=== PATIENT | male | born 1970 | race Caucasian/White ===

== ENCOUNTER 2022-04-07 12:26 | Emergency (ER) | payer MEDICAID ==
--- NOTE | 2022-04-07 13:20 | NUR ---
NO ANSWER IN LOBBY
--- NOTE | 2022-04-07 13:29 | NUR ---
NO ANSWER IN LOBBY
== END 2022-04-07 13:29 | disposition left against medical advice (07) ==
LOC: SED 12:26
DX: R22.42 Localized swelling, mass and lump, left lower limb (principal); Z53.21 Procedure and treatment not carried out due to patient leaving prior to being seen by health care provider

== ENCOUNTER 2022-04-08 06:48 | Inpatient (IN) | payer MEDICAID ==
[~2022-04-08] VITALS: Ht 177.8 cm; Wt 92.5 kg
[2022-04-08 07:29] VITALS: BP_SYST 159
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
--- NOTE | 2022-04-08 07:57 | NUR ---
Dr Del Toro evaluating patient at bedside
[2022-04-08 08:22] LABS: BILIRUBIN,URINE NEGATIVE (NEGATIVE); BLOOD, URINE NEGATIVE (NEGATIVE); CLARITY/URINE CLEAR (CLEAR); COLOR,URINE YELLOW (YELLOW); GLUCOSE,URINE NEGATIVE (NEGATIVE); KETONES,URINE NEGATIVE (NEGATIVE); LEUKOCYTE ESTERASE ,URINE NEGATIVE (NEGATIVE); NITRITE, URINE NEGATIVE (NEGATIVE); PH,URINE 5.5 (5.0-8.0); PROTEIN URINE NEGATIVE (NEGATIVE)
[2022-04-08 08:36] LABS: BASOPHILS # (AUTO) 0.1 K/uL (0.0-0.2); BASOPHILS % (AUTO) 1.5 % (0.0-2.0); EOSINOPHILS # (AUTO) 0.2 K/uL (0.0-0.4); EOSINOPHILS % (AUTO) 2.5 % (0.0-4.0); HEMATOCRIT 40.8 % (36-54); HEMOGLOBIN 13.7 g/dL (14.0-18.0); LYMPHOCYTES # (AUTO) 1.4 K/uL (1.0-5.5); LYMPHOCYTES % (AUTO) 21.7 % (20.5-51.5); MEAN CORPUSCULAR HEMOGLOBIN 32 pg (27-31); MEAN CORPUSCULAR HGB CONC 34 % (32-36); MEAN CORPUSCULAR VOLUME 95 fL (79.0-98.0); MONOCYTES # (AUTO) 0.8 K/uL (0.0-1.0); MONOCYTES % (AUTO) 11.5 % (1.7-9.3); NEUTROPHILS # (AUTO) 4.1 K/uL (1.8-7.7); NEUTROPHILS % (AUTO) 62.8 % (40.0-70.0); PLATELET COUNT (AUTO) 285 K/uL (130-430); RED BLOOD CELL COUNT(AUTO) 4.28 MIL/uL (4.2-6.2); RED CELL DISTRIBUTION WIDTH 12.7 % (9.0-15.0); WHITE BLOOD COUNT (AUTO) 6.6 K/uL (4.8-10.8)
[2022-04-08 08:41] LABS: BARBITURATE, URINE NEGATIVE (NEG <=200); BENZODIAZEPINE, URINE NEGATIVE (NEG <=150); CANNABINOID, URINE NEGATIVE (NEG <=50); COCAINE, URINE NEGATIVE (NEG <=150); METHAMPHETAMINES SCREEN,URINE POSITIVE (NEG <=500); OPIATE, URINE POSITIVE (NEG <=100); PHENCYCLIDINE SCREEN,URINE NEGATIVE (NEG <=25); UR TRICYCLIC ANTIDEPRESSANTS NEGATIVE (NEG <=300); URINE AMPHETAMINE POSITIVE (NEG <=500); URINE METHADONE NEGATIVE (NEG <=200); URINE OXYCODONE SCREEN NEGATIVE (NEG <=100); URINE PROPOXYPHENE SCREEN NEGATIVE (NEG <=300)
[2022-04-08 08:48] LABS: CALCIUM 8.9 mg/dL (8.4-11.0); CREATININE 1.04 mg/dL (0.55-1.30)
[2022-04-08 08:55] LABS: ALBUMIN 3.7 g/dL (3.4-4.8); TOTAL BILIRUBIN 0.5 mg/dL (0.0-1.0)
--- NOTE | 2022-04-08 09:25 | NUR ---
Called patient to hallway 1, no answer,pt chidi
--- NOTE | 2022-04-08 10:19 | NUR ---
Patient to ER bed H3 to gown for evaluation. Side rails up.
[2022-04-08] MEDS ORDERED: cefTRIAXone 2 GM VIAL ONE (10:46)
[2022-04-08] MEDS ORDERED: iohexoL 350 mgI/mL, 100 ML INFUS..BTL IV ONE (12:03)
--- NOTE | 2022-04-08 12:04 | NUR ---
Admit bed requested Patient will be admitted to care of . Admitted to TELE unit. Diagnosis CELLULITIS, ELEVATED TROPONIN Inpatient (Yes or No) YES Observation (Yes or No) NO Orientation concerns or request close to nursing station (Yes or No) NO Covid Status PENDING On vent or bipap NO Isolation requirements NO Needs a sitter NO From Home (Yes or if No enter name of facility) HOME Requires Dialysis (Yes or No) NO Med Rec Completed (Yes of No) YES
--- NOTE | 2022-04-08 12:20 | NUR ---
PT STATES HE TAKES NO MEDS ON REGULAR BASIS, NO MED REC NEEDED.
[2022-04-08] MEDS ORDERED: ACETAMINOPHEN 325 MG TABLET PO PRN ×2 (13:30→13:45)
[2022-04-08] MEDS ORDERED: HYDROcodone/ACETAMIN 10-325 MG TAB PO PRN (13:30)
[2022-04-08] MEDS ORDERED: ONDANSETRON HCL 4 MG/2 ML VIAL IVP PRN (13:30)
[2022-04-08] MEDS ORDERED: NALOXONE HCL 0.4 MG/ML AMP (NARCAN) IVP PRN ×2 (13:30)
[2022-04-08] MEDS ORDERED: HYDROcodone/ACETAMIN 5-325 MG TAB (NORCO/ VICODIN) PO PRN (13:30)
[2022-04-08] MEDS: NORMAL SALINE 5 ML DISP.SYRIN IVF SCH ×4 (14:00→22:00)
--- NOTE | 2022-04-08 19:40 | NUR ---
REPORT GIVEN TO NEISHA RN. PT STABLE. VSS
--- NOTE | 2022-04-08 19:59 | NUR ---
Report received from SEYMOUR Cruz for continuity of care. Patient in stable condition. No distress noted.
--- NOTE | 2022-04-08 20:40 | NUR ---
ADMISSION NOTE Received patient from ER via tee, received report from ER/ RN. Patient admitted with diagnosis of LEFT LEG CELLULITIS/ELEVATED TROPONIN. Patient oriented to hospital routine, call light, toileting and safety-patient verbalized understanding.
--- NOTE | 2022-04-08 20:51 | NUR ---
Patient will be admitted to care of [facility]. Admitted to TELE unit. Will go to room 101B. Belongings list completed. Complete and up to date summary report printed. SBAR report to be given at bedside with opportunity for questions.
[2022-04-08 22:16] VITALS: BP_SYST 135
--- NOTE | 2022-04-08 22:50 | NUR ---
CONSULTATION PAGED/CALLED Reason for Consultation: ELEVATED TROPONIN Person Who was Notified: DR DAKOTA PELAEZ Consulting Physician: DR. DAKOTA PELAEZ System Integration Engineer Specialty: NET DEVELOPER SOFTWARE ENGINEER C Ordering Physician: DR. DAKOTA SANDOVAL
[2022-04-09] VITALS: BP_SYST 140
--- NOTE | 2022-04-09 01:00 | NUR ---
PATIENT RESTING: Patient resting quietly. No acute distress noted. telemetry NSR
[2022-04-09] MEDS: NORMAL SALINE 5 ML DISP.SYRIN IVF SCH ×6 (06:00→22:00)
--- NOTE | 2022-04-09 06:25 | NUR ---
Patient sleep well denies any chest pain , telemetry NSR.
[2022-04-09 06:51] LABS: BASOPHILS % (AUTO) 0.9 % (0.0-2.0); EOSINOPHILS # (AUTO) 0.2 K/uL (0.0-0.4); EOSINOPHILS % (AUTO) 4.3 % (0.0-4.0); HEMATOCRIT 40.3 % (36-54); HEMOGLOBIN 13.5 g/dL (14.0-18.0); LYMPHOCYTES # (AUTO) 1.3 K/uL (1.0-5.5); LYMPHOCYTES % (AUTO) 26.4 % (20.5-51.5); MEAN CORPUSCULAR HEMOGLOBIN 32 pg (27-31); MEAN CORPUSCULAR HGB CONC 34 % (32-36); MEAN CORPUSCULAR VOLUME 95 fL (79.0-98.0); MONOCYTES # (AUTO) 0.5 K/uL (0.0-1.0); MONOCYTES % (AUTO) 9.8 % (1.7-9.3); NEUTROPHILS % (AUTO) 58.6 % (40.0-70.0); PLATELET COUNT (AUTO) 249 K/uL (130-430); RED BLOOD CELL COUNT(AUTO) 4.23 MIL/uL (4.2-6.2); RED CELL DISTRIBUTION WIDTH 12.5 % (9.0-15.0)
--- NOTE | 2022-04-09 07:23 | NUR ---
OPENING NOTES: RECEIVED BEDSIDE SBAR FROM PM SHIFT NURSE, PATIENT IS STABLE NO DISTRESS, RESTING IN BED WITH EYES CLOSED, CALL LIGHT IN REACH, BED LOCKED AND IN LOW POSITION ALL NEEDS BEING KNOWN, WILL MONITOR PATIENT PER ORDERS.
[2022-04-09 07:49] LABS: CALCIUM 8.3 mg/dL (8.4-11.0); CREATININE 0.86 mg/dL (0.55-1.30); PHOSPHORUS 3.3 mg/dL (2.7-4.5)
[2022-04-09 08:01] VITALS: BP_SYST 135
[2022-04-09] MEDS: cefTRIAXone 1 GM IVPB PREMIX 50 ML IV SCH (09:42)
[2022-04-09 12:30] VITALS: BP_SYST 136
[2022-04-09 16:02] VITALS: BP_SYST 139
--- NOTE | 2022-04-09 16:27 | NUR ---
SPOKE WITH DR Tj DUNCAN, OK TO DOWN GRADE TO MED SURG.
--- NOTE | 2022-04-09 16:36 | NUR ---
TELE BOX REMOVED, PATIENT IS STABLE NO DISTRESS, SITTING UP IN CHAIR. AMB TO RESTROOM
--- NOTE | 2022-04-09 18:10 | NUR ---
CLOSING NOTES: PATIENT REMAINED STABLE NO DISTRESS, ALL NEED WHERE KNOWN, PATIENT RESTING WELL IN BED CALL LIGHT IN REACH, BED AT LOW AND LOCKED POSITION WILL GIVE PM SHIFT NURSE BEDSIDE SBAR.
[2022-04-09 19:31] VITALS: BP_SYST 131
[2022-04-10 00:01] VITALS: BP_SYST 134
--- NOTE | 2022-04-10 05:02 | NUR ---
CONSULTATION PAGED/CALLED Reason for Consultation: CELLULITIS, LEG WOUND Person Who was Notified: LANA Consulting Physician: DR. GISELE CUMMINGS FOR DR.H FLOWER Supplies Packer Specialty: GEN SURG Ordering Physician:
--- NOTE | 2022-04-10 05:58 | NUR ---
No significant changes from assessment, left lower still with swelling much improve compare on admission ,,redness, warm to touch , encouraged to elevate leg ,denies any pain, needs attended.
[2022-04-10] MEDS: NORMAL SALINE 5 ML DISP.SYRIN IVF SCH ×6 (06:00→20:43)
[2022-04-10 06:58] LABS: BASOPHILS % (AUTO) 0.7 % (0.0-2.0); EOSINOPHILS # (AUTO) 0.3 K/uL (0.0-0.4); EOSINOPHILS % (AUTO) 5.1 % (0.0-4.0); HEMATOCRIT 40.9 % (36-54); HEMOGLOBIN 13.7 g/dL (14.0-18.0); LYMPHOCYTES # (AUTO) 1.5 K/uL (1.0-5.5); LYMPHOCYTES % (AUTO) 28.8 % (20.5-51.5); MEAN CORPUSCULAR HEMOGLOBIN 32 pg (27-31); MEAN CORPUSCULAR HGB CONC 34 % (32-36); MEAN CORPUSCULAR VOLUME 95 fL (79.0-98.0); MONOCYTES # (AUTO) 0.5 K/uL (0.0-1.0); MONOCYTES % (AUTO) 10.8 % (1.7-9.3); NEUTROPHILS # (AUTO) 2.8 K/uL (1.8-7.7); NEUTROPHILS % (AUTO) 54.6 % (40.0-70.0); PLATELET COUNT (AUTO) 249 K/uL (130-430); RED BLOOD CELL COUNT(AUTO) 4.32 MIL/uL (4.2-6.2); RED CELL DISTRIBUTION WIDTH 12.1 % (9.0-15.0); WHITE BLOOD COUNT (AUTO) 5.1 K/uL (4.8-10.8)
--- NOTE | 2022-04-10 07:45 | NUR ---
RECEIVED PATIENT FROM PM NURSE, ALERT AND ORIENTED, ABLE TO VERBALIZE NEEDS, IV IN LFA PATENT, NO C/O PAIN OR DISCOMFORT, SWELLING OBSERVED IN LEFT LEG, WARM TO THE TOUCH, WILL ASSUME ALL CARE OF PATIENT
[2022-04-10] MEDS: cefTRIAXone 1 GM IVPB PREMIX 50 ML IV SCH ×2 (07:54→20:42)
[2022-04-10 07:59] LABS: ALANINE AMINOTRANSFERASE 28 U/L (12-78); ALBUMIN 3.3 g/dL (3.4-4.8); ANION GAP 7 (5-15); ASPARTATE AMINOTRANSFERASE 20 U/L (10-37); CALCIUM 8.5 mg/dL (8.4-11.0); CHLORIDE 101 mmol/L (98-107); CREATININE 1.09 mg/dL (0.55-1.30); GLUCOSE 100 mg/dL (70-99); TOTAL BILIRUBIN 0.3 mg/dL (0.0-1.0); UREA NITROGEN, BLOOD 23 mg/dL (8-21)
[2022-04-10 08:00] LABS: C-REACTIVE PROTEIN QUANT < 0.2 mg/dL (0-0.5); GFR AFRICAN AMERICAN 91 mL/min (>90)
[2022-04-10 08:30] VITALS: BP_SYST 134
--- NOTE | 2022-04-10 09:15 | NUR ---
PATIENT C/O 5/10 PAIN IN LEFT LEG, PRN TYLENOL ADMINISTERED PER EMAR
[2022-04-10 11:38] LABS: ERYTHROCYTE SEDIMENTATION RATE 5 MM/HR (0-15)
--- NOTE | 2022-04-10 11:54 | NUR ---
TELEPHONE CALL FROM LAB, PATIENT MRSA POSITIVE, CHARGE NURSE MADE AWARE
[2022-04-10 12:00] VITALS: BP_SYST 132
--- NOTE | 2022-04-10 12:45 | NUR ---
CONSULTATION PAGED REASON FOR CONSULTATION CELLULITIS LEG WOUND WAS CONSULT CALED?Y PERSON WHO WAS NOTIFIED:KARSTEN CONSULTING PHYSICIAN:MANUEL GONZALEZ BRAKE PRESS OPERATOR SPECIALTY:SURGEON BRAKE PRESS OPERATOR PHONE NUMBER:[phone] REQUESTING PHYSICIAN:JAIME SAGASTUME
--- NOTE | 2022-04-10 13:41 | NUR ---
Dietitian Recommendations * Continue cardiac diet * Consider wound supplements: MVI, 250 mg VIT C, Nathan BID * Consider 220mg ZnSO4 x 14 days for wound healing GS, MPH, RD Please refer to RD Assessment for further details Addendum: 04/10/22 at [address] Amended: Links added.
[2022-04-10 16:30] VITALS: BP_SYST 158
[2022-04-10 20:00] VITALS: BP_SYST 131
--- NOTE | 2022-04-10 21:56 | NUR ---
Patient in bed. No acute distress noted. No complaint of pain or discomfort. Will continue to monitor.
[2022-04-11 04:00] VITALS: BP_SYST 132
[2022-04-11] MEDS: NORMAL SALINE 5 ML DISP.SYRIN IVF SCH ×2 (05:18)
[2022-04-11 07:01] LABS: BASOPHILS % (AUTO) 0.7 % (0.0-2.0); EOSINOPHILS # (AUTO) 0.4 K/uL (0.0-0.4); EOSINOPHILS % (AUTO) 6.7 % (0.0-4.0); HEMATOCRIT 43.6 % (36-54); HEMOGLOBIN 14.6 g/dL (14.0-18.0); LYMPHOCYTES # (AUTO) 1.6 K/uL (1.0-5.5); LYMPHOCYTES % (AUTO) 30.4 % (20.5-51.5); MEAN CORPUSCULAR HEMOGLOBIN 32 pg (27-31); MEAN CORPUSCULAR HGB CONC 33 % (32-36); MEAN CORPUSCULAR VOLUME 95 fL (79.0-98.0); MONOCYTES # (AUTO) 0.6 K/uL (0.0-1.0); MONOCYTES % (AUTO) 11.9 % (1.7-9.3); NEUTROPHILS # (AUTO) 2.7 K/uL (1.8-7.7); NEUTROPHILS % (AUTO) 50.3 % (40.0-70.0); PLATELET COUNT (AUTO) 284 K/uL (130-430); RED CELL DISTRIBUTION WIDTH 12.5 % (9.0-15.0); WHITE BLOOD COUNT (AUTO) 5.4 K/uL (4.8-10.8)
[2022-04-11 07:43] LABS: ANION GAP 8 (5-15); CALCIUM 8.5 mg/dL (8.4-11.0); CHLORIDE 101 mmol/L (98-107); CREATININE 0.79 mg/dL (0.55-1.30); GLUCOSE 105 mg/dL (70-99); UREA NITROGEN, BLOOD 17 mg/dL (8-21)
[2022-04-11 07:55] LABS: GFR AFRICAN AMERICAN 131 mL/min (>90)
[2022-04-11 07:56] LABS: C-REACTIVE PROTEIN QUANT < 0.2 mg/dL (0-0.5)
[2022-04-11 08:00] VITALS: BP_SYST 130
[2022-04-11] MEDS ORDERED: HYDR-3917 PO (10:58)
[2022-04-11 11:27] VITALS: BP_SYST 156
[2022-04-11 12:32] LABS: ERYTHROCYTE SEDIMENTATION RATE 3 MM/HR (0-15)
--- NOTE | 2022-04-11 13:57 | NUR ---
patient left ama, educated on risks of leaving before completion of treatment, patient verbalized understanding, MD made aware, iv in left hand dc with iv intact,
== END 2022-04-11 13:50 | disposition left against medical advice (07) | DRG 720 ==
LOC: SED 06:48 → STU 11:53 → SMU 04-09 16:39
PROVIDERS: ADMIT Preventive Medicine Preventive Medicine/Occupational Environmental Medicine; ATTEND Preventive Medicine Preventive Medicine/Occupational Environmental Medicine
DX: A41.9 Sepsis, unspecified organism (principal); E88.09 Other disorders of plasma-protein metabolism, not elsewhere classified; L03.116 Cellulitis of left lower limb; E83.52 Hypercalcemia; F15.90 Other stimulant use, unspecified, uncomplicated; Z20.822 Contact with and (suspected) exposure to COVID-19; M25.462 Effusion, left knee; R73.9 Hyperglycemia, unspecified
CPT/HCPCS: 36415; 71045; 71275; 76376; 80048; 80053; 80307; 81003; 83605; 83735; 83880; 84100; 84484; 85025; 85651-TC; 86140; 87040; 87081; 93306; 93971; 99285; G0378; J0696; J7030; Q9967

== ENCOUNTER 2022-10-10 14:31 | Emergency (ER) | payer MEDICAID ==
[~2022-10-10] VITALS: Ht 177.8 cm; Wt 95.3 kg
[~2022-10-10 14:31] MED LIST: HYDR-3917 PO
[2022-10-10 14:46] VITALS: BP_SYST 109
--- NOTE | 2022-10-10 15:13 | NUR ---
Patient to ER CHAIR 2 for evaluation.
--- NOTE | 2022-10-10 15:14 | NUR ---
ER Dr. LERNER at bedside examining patient.
[2022-10-10] MEDS ORDERED: ceFAZolin SODIUM 2 GM VIAL IM ONE (15:15)
[2022-10-10] MEDS ORDERED: IBUPROFEN 800 MG TABLET PO ONE (15:15)
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
[2022-10-10] MEDS ORDERED: ceFAZolin SODIUM 1 GM VIAL IM ONE (15:30)
[2022-10-10] MEDS ORDERED: CEPH-548 PO (16:54)
[2022-10-10] MEDS ORDERED: DICL20GE TP (16:54)
[2022-10-10] MEDS ORDERED: IBUP-1971 PO (16:54)
[2022-10-10 16:58] VITALS: BP_SYST 116
--- NOTE | 2022-10-10 16:58 | NUR ---
Patient given written and verbal discharge instructions and verbalizes understanding. ER MD discussed with patient the results and treatment provided. Patient in stable condition. ID arm band removed. Rx of KEFLEX, DICLOFENAC, IBUPROFEN given. Patient educated on pain management and to follow up with PMD. Pain Scale . Opportunity for questions provided and answered. Medication side effect fact sheet provided.
== END 2022-10-10 16:58 | disposition home or self-care (01) ==
LOC: SED 14:31
DX: L03.116 Cellulitis of left lower limb (principal); R22.42 Localized swelling, mass and lump, left lower limb; Z79.899 Other long term (current) drug therapy
CPT/HCPCS: 99285; 93971; 96372; J0690

== ENCOUNTER 2023-01-20 21:52 | Emergency (ER) | payer MEDICAID ==
[~2023-01-20] VITALS: Ht 177.8 cm; Wt 79.4 kg
[~2023-01-20 21:52] MED LIST changes: +CEPH-548 PO; +DICL20GE TP; +IBUP-1971 PO
[2023-01-20 22:02] VITALS: BP_SYST 147; PULSE 76; TEMP 98; O2SAT 98
[2023-01-20 22:55] LABS: BASOPHILS % (AUTO) 0.5 % (0.0-2.0); EOSINOPHILS # (AUTO) 0.1 K/uL (0.0-0.4); EOSINOPHILS % (AUTO) 1.9 % (0.0-4.0); HEMATOCRIT 38.4 % (36-54); HEMOGLOBIN 12.5 g/dL (14.0-18.0); LYMPHOCYTES # (AUTO) 1.3 K/uL (1.0-5.5); LYMPHOCYTES % (AUTO) 16.9 % (20.5-51.5); MEAN CORPUSCULAR HEMOGLOBIN 31 pg (27-31); MEAN CORPUSCULAR HGB CONC 33 % (32-36); MEAN CORPUSCULAR VOLUME 95 fL (79.0-98.0); MONOCYTES # (AUTO) 0.9 K/uL (0.0-1.0); MONOCYTES % (AUTO) 12.6 % (1.7-9.3); NEUTROPHILS # (AUTO) 5.1 K/uL (1.8-7.7); NEUTROPHILS % (AUTO) 68.1 % (40.0-70.0); PLATELET COUNT (AUTO) 252 K/uL (130-430); RED BLOOD CELL COUNT(AUTO) 4.07 MIL/uL (4.2-6.2); RED CELL DISTRIBUTION WIDTH 13.6 % (9.0-15.0); WHITE BLOOD COUNT (AUTO) 7.5 K/uL (4.8-10.8)
[2023-01-20 23:12] LABS: CALCIUM 7.4 mg/dL (8.4-11.0); CREATININE 1.02 mg/dL (0.55-1.30); POTASSIUM 3.8 mmol/L (3.5-5.1)
[2023-01-20 23:16] LABS: ALBUMIN 3.1 g/dL (3.4-4.8); TOTAL BILIRUBIN 0.3 mg/dL (0.0-1.0); TOTAL PROTEIN, SERUM 7.1 g/dL (6.4-8.3)
[2023-01-21] MEDS ORDERED: VANCOMYCIN HCL 1000 MG/VIAL IV ONE (00:43)
[2023-01-21] MEDS ORDERED: PIPERACILLIN/TAZOBACTAM 3.375 GM/VIAL (ZOSYN) IV ONE (00:45)
[2023-01-21] MEDS ORDERED: PIPERACILLIN/TAZO 3.375 GM in NS 50 ML IV ONE (00:45)
[2023-01-21] MEDS ORDERED: VANCOMYCIN HCL 1,000 MG in NS 250 ML IV ONE (00:45)
[2023-01-21] MEDS ORDERED: KETOROLAC TROMETHAMINE 30 MG VIAL IVP ONE (02:30)
[2023-01-21] MEDS ORDERED: BACITRACIN 1 GM OINT TP ONE (03:01)
[2023-01-21 03:55] VITALS: BP_SYST 136; PULSE 76; RESP 18; TEMP 98.3; O2SAT 96
== END 2023-01-21 04:03 | disposition short-term general hospital (02) ==
LOC: SED 21:52
DX: L03.113 Cellulitis of right upper limb (principal); L08.9 Local infection of the skin and subcutaneous tissue, unspecified; M79.89 Other specified soft tissue disorders; Z79.899 Other long term (current) drug therapy; Z20.822 Contact with and (suspected) exposure to COVID-19
CPT/HCPCS: 99285; 87426; 80053; 85025; 36415; 73120; 96365; 96375; 96368; J1885; J2543; J3370